=== PATIENT | male | born 1955 | race Caucasian/White ===

== ENCOUNTER 2018-06-08 07:28 | Day surgery (SDC) | payer BC ==
[2018-06-08] MEDS ORDERED: LIDOCAINE HCL 1% MPF 30 SOL ONE (07:55)
[2018-06-08] MEDS ORDERED: PROPOFOL 500 MG/50 ML EMU IV ONE (07:55)
[2018-06-08 09:06] VITALS: TEMP 97.3
[2018-06-08 09:26] VITALS: RESP 20; O2SAT 94
[2018-06-08 09:32] VITALS: BP 154/84; PULSE 76
== END 2018-06-08 09:45 | disposition home or self-care (01) ==
LOC: SURG 07:28
PROVIDERS: ATTEND Internal Medicine Gastroenterology
DX: K50.00 Crohn's disease of small intestine without complications (principal); Z86.010 Personal history of colon polyps; K64.8 Other hemorrhoids
CPT/HCPCS: J2001; J2704